=== PATIENT | male | born 1950 | race Caucasian/White ===

== ENCOUNTER 2017-01-29 07:08 | Day surgery (SDC) | payer MEDICARE ==
[~2017-01-29] VITALS: Ht 180.3 cm; Wt 117.5 kg
[~2017-01-29 07:08] MED LIST: LOSA25TA21 PO; METO-408 PO; SODIUM CHLORIDE 0.9% 1000ML 1,000 ML IV ONE
[2017-01-29 07:30] VITALS: BP 145/80
[2017-01-29] MEDS ORDERED: PROPOFOL 10 MG/ML 20ML VIAL IV ONE (08:50)
[2017-01-29 09:26] VITALS: BP 104/53
[2017-03-05] MEDS ORDERED: GINK120C PO (15:04)
[2017-03-05] MEDS ORDERED: FENO160T16 PO (15:04)
[2017-03-05] MEDS ORDERED: CHOL100018 PO (15:04)
[2017-03-05] MEDS ORDERED: SIMV20TA6 PO (15:04)
[2017-03-05] MEDS ORDERED: FISH OIL PO (15:04)
[2017-03-05] MEDS ORDERED: LOSA25TA2 PO (15:04)
[2017-03-05] MEDS ORDERED: AEC81 PO (15:04)
== END 2017-01-29 09:53 | disposition home or self-care (01) ==
LOC: DAH 07:08
PROVIDERS: ATTEND Internal Medicine Gastroenterology
DX: R19.4 Change in bowel habit (principal); E11.9 Type 2 diabetes mellitus without complications; I25.2 Old myocardial infarction; Z90.49 Acquired absence of other specified parts of digestive tract; E78.5 Hyperlipidemia, unspecified; Z87.891 Personal history of nicotine dependence; Z87.19 Personal history of other diseases of the digestive system; Z83.71 Family history of colonic polyps; Z80.9 Family history of malignant neoplasm, unspecified; Z83.3 Family history of diabetes mellitus; Z82.49 Family history of ischemic heart disease and other diseases of the circulatory system
CPT/HCPCS: 45378; A4606; J2704; J7030

== ENCOUNTER 2017-03-07 06:16 | Day surgery (SDC) | payer MEDICARE ==
[2017-03-05 14:16] LABS: BASOPHILS % (AUTO) 0.4 % (0.0-5.0); EOSINOPHILS % (AUTO) 2.4 % (0.0-8.0); HEMATOCRIT 40.6 % (42-54); LYMPHOCYTES % (AUTO) 42.2 % (21.0-51.0); MEAN CORPUSCULAR HEMOGLOBIN 30.2 pg (27.0-33.0); MEAN CORPUSCULAR HGB CONC 33.9 g/dL (32.0-36.0); MEAN CORPUSCULAR VOLUME 89.2 fL (79-99); PLATELET COUNT (AUTO) 194 K/uL (130-400); RED BLOOD CELL COUNT(AUTO) 4.55 MIL/uL (4.50-6.20); RED CELL DISTRIBUTION WIDTH 12.8 % (11.0-15.5); WHITE BLOOD COUNT (AUTO) 6.3 K/uL (4.8-10.8)
[2017-03-05 14:40] VITALS: BP 134/72
[2017-03-06] MEDS: CEFAZOLIN SODIUM 1 GM VIAL IVP SCH (11:00)
[2017-03-07] VITALS (18 sets, daily range): BP systolic 108–129; BP diastolic 55–63
[~2017-03-07] VITALS: Ht 182.9 cm; Wt 117.9 kg
[~2017-03-07 06:16] MED LIST changes: +AEC81 PO; +CHOL100018 PO; +FENO160T16 PO; +FISH OIL PO; +GINK120C PO; +LOSA25TA2 PO; -LOSA25TA21 PO; +SIMV20TA6 PO; -SODIUM CHLORIDE 0.9% 1000ML 1,000 ML IV ONE; +WATER FOR INJECTION,STERILE 20 ML VIAL IJ SCH
[2017-03-07] MEDS ORDERED: SODIUM CHLORIDE 0.9% 1000ML 1,000 ML IV ONE (06:43)
[2017-03-07] MEDS ORDERED: NEOMY SULF/POLYMYXIN B SULFATE 1 ML AMPUL IR ONE (07:09)
[2017-03-07] MEDS ORDERED: LIDOCAINE HCL-MPF 1% 5ML AMP IJ ONE (07:37)
[2017-03-07] MEDS ORDERED: GLYCOPYRROLATE 0.2 MG/ML 5 ML VIAL ONE (07:37)
[2017-03-07] MEDS ORDERED: LIDOCAINE PF 2% 5ML ABBOJECT ONE (07:37)
[2017-03-07] MEDS ORDERED: FENTANYL CITRATE PF 50 MCG/1 ML 5ML AMP IV ONE (07:37)
[2017-03-07] MEDS ORDERED: MIDAZOLAM HCL 1 MG/ML 2ML VIAL ONE (07:37)
[2017-03-07] MEDS ORDERED: DEXAMETHASONE SOD PHOSPHATE 10MG/ML 1ML VIAL ONE (07:37)
[2017-03-07] MEDS ORDERED: ROCURONIUM BROMIDE 10MG/1ML 5ML VL ONE (07:37)
[2017-03-07] MEDS ORDERED: ONDANSETRON HCL 4 MG/2 ML VIAL ONE (07:37)
[2017-03-07] MEDS ORDERED: PROPOFOL 10 MG/ML 20ML VIAL IV ONE ×2 (07:37→08:08)
[2017-03-07] MEDS: CEFAZOLIN SODIUM 1 GM VIAL IVP SCH (07:45)
[2017-03-07] MEDS ORDERED: EPHEDRINE SULFATE 50 MG/ML AMPULE ONE (07:52)
[2017-03-07] MEDS ORDERED: BUPIVACAINE/EPI/PF 0.5% 30ML VIAL IJ ONE (08:29)
[2017-03-07] MEDS ORDERED: MEPERIDINE-PF 25 MG/ML SYG ONE (09:22)
== END 2017-03-07 10:50 | disposition home or self-care (01) ==
LOC: DAH 06:16
PROVIDERS: ATTEND Surgery
DX: K42.0 Umbilical hernia with obstruction, without gangrene (principal); E11.9 Type 2 diabetes mellitus without complications; E78.00 Pure hypercholesterolemia, unspecified; I25.2 Old myocardial infarction; I10 Essential (primary) hypertension; Z98.890 Other specified postprocedural states; Z95.5 Presence of coronary angioplasty implant and graft; Z79.899 Other long term (current) drug therapy; Z87.891 Personal history of nicotine dependence
CPT/HCPCS: 36415; 49587; 80048; 82948; 85025; 93005; A4218; A4450; A4452; A4510; A4600; A4930; C1781; J0690; J1100; J2001; J2175; J2250; J2405; J2704 ×2; J3010; J3490 ×6; J7030

== ENCOUNTER → 2019-06-01 | Outpatient (CLI) | payer MEDICARE ==
[~2019-06-01] MED LIST changes: +SIMV-43 PO; -SIMV20TA6 PO; -WATER FOR INJECTION,STERILE 20 ML VIAL IJ SCH
== END | disposition home or self-care (01) ==
LOC: SHCH 13:15
PROVIDERS: ATTEND Internal Medicine Cardiovascular Disease
DX: I65.23 Occlusion and stenosis of bilateral carotid arteries (principal)
CPT/HCPCS: 93880

== ENCOUNTER → 2020-11-21 | Outpatient (CLI) | payer MEDICARE | END | disposition home or self-care (01) | LOC: SHCH 09:34 | PROVIDERS: ATTEND Internal Medicine Cardiovascular Disease | DX: I65.23 Occlusion and stenosis of bilateral carotid arteries (principal); I25.10 Atherosclerotic heart disease of native coronary artery without angina pectoris | CPT/HCPCS: 93925 ==

== ENCOUNTER 2025-01-20 05:45 | Day surgery (SDC) | payer MEDICARE ==
[2025-01-18 13:19] VITALS: BP 122/70; PULSE 56; RESP 18; TEMP 97.5
[2025-01-18 13:31] LABS: IMMATURE GRANULOCYTE ABSOLUTE 0.02 K/uL (0-1); NUCLEATED RED BLOOD CELLS 0.0 % (0.0-0.19); PLATELET COUNT (AUTO) 265 K/uL (130-400); RED BLOOD CELL COUNT(AUTO) 4.73 MIL/uL (4.50-6.20); RED CELL DISTRIBUTION WIDTH 12.2 % (11.0-15.5); WHITE BLOOD COUNT (AUTO) 7.4 K/uL (4.8-10.8)
[2025-01-18 13:34] LABS: APPEARANCE,URINE CLEAR (CLEAR); GLUCOSE, URINE (UA) NEGATIVE (NEGATIVE); LEUKOCYTE ESTERASE ,URINE NEGATIVE Leu/uL (NEGATIVE); NITRATE,URINE NEGATIVE (NEGATIVE); OCCULT BLOOD,URINE NEGATIVE (NEGATIVE)
[2025-01-18 13:35] LABS: ADD UA MICROSCOPIC NO
--- NOTE | 2025-01-18 13:35 | EKG ---
[facility] Test Date: 2025-01-18 Test Time: 13:12:57 Pat Name: BUFFY ZEPEDA Department: [facility] Room: Gender: M [place] [employer] [place] Manager: [id number] : 1950 Requested By: Cristy RIVERA Order Number: [id number] Reading MD: Gildardo Cool Measurements Intervals [place] Rate: 49 P: 0 IL: 0 QRS: 59 QRSD: 122 T: 54 QT: 462 QTc: 419 Interpretive Statements Atrial fibrillation Nonspecific intraventricular conduction delay Compared to ECG 04/16/2021 09:35:12 Intraventricular conduction delay now present Sinus bradycardia no longer present First degree AV block no longer present Electronically Signed On 01-18-2025 18:23:12 UPFITTER by Gildardo Cool Please click the below link to view image of tracing.
[2025-01-18 13:44] LABS: CREATININE 1.0 mg/dL (0.5-1.3); GLOMERULAR FILTR. RATE CALC 78.0 mL/min (>90); GLUCOSE,RANDOM 105.0 mg/dL (70-105); SODIUM SERUM 142.0 mmol/L (136-145); UREA NITROGEN, BLOOD 13.0 mg/dL (7-18)
[2025-01-18 13:55] LABS: INR 1.02 (0.85-1.15)
--- NOTE | 2025-01-18 19:20 | HMCIMG ---
STUDY: X-RAY OF THE CHEST, 1 VIEW HISTORY: Pre-operative evaluation. TECHNIQUE: A single frontal view of the chest is submitted for interpretation. COMPARISON: None provided. FINDINGS: Pulmonary corral: Mild prominence of bronchovascular markings. No focal consolidation, pulmonary edema, or discrete pulmonary nodule is identified. Cardiac silhouette: Cardiac silhouette is within normal limits in size and contour for a frontal projection. Mediastinum and amilcar: Mediastinal contours and hilar structures appear normal without evidence of mass or mediastinal widening. Small round mass in right hilum, recommend CT chest with IV contrast for further workup. Osseous structures: Visualized ribs, clavicles, and thoracic spine show no acute osseous abnormality. Miscellaneous: No pleural effusion or pneumothorax is identified. Costophrenic angles are clear. No subdiaphragmatic free air is seen. IMPRESSION: * Mild prominence of bronchovascular markings, which may reflect bronchitic or reactive airways changes in the appropriate clinical context. Small round mass in right hilum, recommend CT chest with IV contrast for further workup. * Otherwise no acute cardiopulmonary abnormality identified on this pre-operative single-view chest radiograph. /[place]
--- NOTE | 2025-01-19 11:49 | NUR ---
REPORT REPORTED BMP AND CXR TO MONIKA ALLEN NP. RECEIVED ORDERS FOR BMP IN AM
[~2025-01-20] VITALS: Ht 182.9 cm; Wt 111.7 kg
[2025-01-20] VITALS (11 sets, daily range): BP systolic 100–127; BP diastolic 51–71; PULSE 50–61; RESP 16–18; TEMP 96.9–97.6
[~2025-01-20 05:45] MED LIST changes: -AEC81 PO; +APIX5TAB PO; +ATOR10 PO; -CHOL100018 PO; +CLOP75TA32 PO; +DRON400T7 PO; -FENO160T16 PO; -FISH OIL PO; +FURO20TA4 PO; -GINK120C PO; +LEVO75CA6 PO; +LOSA100T59 PO; -LOSA25TA2 PO; -METO-408 PO; -SIMV-43 PO
[2025-01-20] MEDS: 0.9%NACL 1000ML 1,000 ML IV ONE (06:22)
[2025-01-20 06:37] LABS: CREATININE 1.0 mg/dL (0.5-1.3); GLOMERULAR FILTR. RATE CALC 78.0 mL/min (>90); GLUCOSE,RANDOM 142.0 mg/dL (70-105); SODIUM SERUM 140.0 mmol/L (136-145); UREA NITROGEN, BLOOD 18.0 mg/dL (7-18)
[2025-01-20] MEDS ORDERED: LIDOCAINE HCL 400MG/20ML VIAL ONE (07:16)
[2025-01-20] MEDS ORDERED: SODIUM BICARB 50MEQ 50ML VIAL 50 ML ONE (07:16)
[2025-01-20] MEDS ORDERED: HEParin-NS 1,000 UNIT/500 ML 1,000 ML IV ONE (07:17)
[2025-01-20] MEDS ORDERED: NITROGLYCERIN 50MG VIAL ONE (07:17)
[2025-01-20] MEDS ORDERED: IOHEXOL 350 MG/ML 100ML INFUS..BTL IV ONE ×2 (07:17→07:37)
[2025-01-20] MEDS ORDERED: MIDAZOLAM HCL 1 MG/ML 2ML VIAL ONE ×2 (07:30→08:16)
[2025-01-20] MEDS ORDERED: ATROPINE 1MG SYG IVP ONE (07:48)
[2025-01-20] MEDS ORDERED: DEXTROSE 50%-WATER 50 ML DISP.SYRIN IV PRN (09:00)
[2025-01-20] MEDS ORDERED: GLUCAGON 1MG KIT 1 MG ML IM PRN (09:00)
[2025-01-20] MEDS ORDERED: 0.9%NACL 1000ML 1,000 ML IV SCH (09:00)
--- NOTE | 2025-01-20 09:34 | CCATH ---
PROCEDURES: * Left heart catheterization. * Selective diagnostic right and left coronary arteriogram. * Selective right and left carotid artery angiogram. * Conscious sedation x 60 minutes. INDICATIONS: * Known history of severe coronary artery disease. * Status post remote angioplasty and stenting of the circumflex coronary artery in 2006. * Severe right carotid artery stenosis by noninvasive studies. * Recurrent TIAs. COMPLICATIONS: None. TOTAL CONTRAST: 85 mL. APPROACH: Right femoral approach. DESCRIPTION OF PROCEDURE: The patient was sent to the cardiac catheterization lab after appropriate operative consents were signed. It was prepped and draped in the usual fashion. After conscious sedation was administered, the right common femoral artery region was infiltrated with 2% Xylocaine without epinephrine. Ultrasound guidance was utilized to access the right common femoral artery. A 6-Kittitian sheath was advanced in a retrograde fashion with modified Seldinger technique. An FL4 6-Kittitian diagnostic catheter was advanced over an indwelling wire. This was selectively engaged in the ostium of the left main. Imaging was obtained in multiple planes. The left main was a smaller caliber vessel, calcified but non-stenotic with adequate antegrade flow. It bifurcated into the LAD, circumflex. The LAD was moderately sized vessel in its proximal portion and gave rise to a large branching first diagonal. The LAD had no significant stenotic lesion but was small to moderate at the distal terminal portion. Circumflex was a large vessel that gave rise to a tiny obtuse marginal 1 and an ongoing circ. There was a stent in the mid circ between the tiny obtuse marginal 1 and the larger second marginal branch, which was normal. There were no other significant stenotic lesions in the circumflex coronary artery. The catheter was withdrawn and an FR4 6-Kittitian catheter was advanced and placed in the left ventricular cavity. Left ventricular end-diastolic pressure measurement was obtained. Ventriculography was deferred. The patient has preserved left ventricular systolic function with noninvasive studies. The pullback revealed no evidence of aortic stenosis. The catheter was then engaged in the ostium of the right coronary artery. This was imaged in multiple planes. The right coronary artery was a large vessel, giving rise to an acute marginal PDA and a branching PLVB. There were no significant stenotic lesions; however, in the mid segment of the RCA, there appeared to be a filling defect that was seen on multiple views. This is of small magnitude and of questionable significance. It is certainly nonocclusive. At this point, the catheter was withdrawn and engaged in the right common carotid artery. This was imaged in multiple planes. This revealed a high-grade lesion in the distal common carotid artery involving the ostium of the right internal carotid artery. The lesion was calcified and appeared to be at least a 95% plus stenotic range. The distal intracerebral circulation was normal; however, there was evidence of hypoperfusion. The catheter was then withdrawn and engaged in the left common carotid artery. This was imaged in multiple planes. The common carotid artery was normal on the left. Bifurcated into external and internal. Both internal and external carotid arteries were normal. The intracerebral circulation was normal and the left giving rise to anterior and middle cerebral arteries. The patient had excellent flow from left to right via the left carotid system. The left middle and anterior cerebral arteries as well as the right middle and anterior cerebral arteries were filled by imaging of the left common carotid artery. At this point, the procedure was completed. Perclose was utilized with good hemostasis. The patient tolerated the procedure well and left the cardiac catheterization lab in stable condition. FINAL IMPRESSION: * Coronary artery disease with a patent circumflex stent and a minimal filling defect in the right coronary artery of questionable significance and no other significant stenotic lesions. * Preserved left ventricular systolic function on noninvasive studies. * No aortic stenosis on pullback. * Critical, calcified right internal carotid artery stenosis. PLAN: Continue medical management for the patient's cardiac status. We will discuss with the patient the options of management of his critical carotid stenosis either by open endarterectomy or TCAR. The heavily calcified nature of the lesion would favor carotid endarterectomy; however, this will be discussed with the patient and the family. TID: [id number] RECEIPT: [id number]
[2025-01-21] MEDS ORDERED: MAGN400T40 PO (14:25)
[2025-01-21] MEDS ORDERED: FISH1CAP63 PO (14:25)
[2025-01-21] MEDS ORDERED: CENTRUM MVI PO (14:25)
== END 2025-01-20 14:05 | disposition home or self-care (01) ==
LOC: DAH 05:45
PROVIDERS: ATTEND Internal Medicine Cardiovascular Disease
DX: I25.10 Atherosclerotic heart disease of native coronary artery without angina pectoris (principal); I65.23 Occlusion and stenosis of bilateral carotid arteries; I45.4 Nonspecific intraventricular block; I48.91 Unspecified atrial fibrillation; E78.5 Hyperlipidemia, unspecified; E03.9 Hypothyroidism, unspecified; E11.9 Type 2 diabetes mellitus without complications; I25.2 Old myocardial infarction; I87.2 Venous insufficiency (chronic) (peripheral); I48.0 Paroxysmal atrial fibrillation; I10 Essential (primary) hypertension; I77.9 Disorder of arteries and arterioles, unspecified; Z95.5 Presence of coronary angioplasty implant and graft; Z79.01 Long term (current) use of anticoagulants; Z79.899 Other long term (current) drug therapy
CPT/HCPCS: 80048 ×2; 83880; 85025; 85610; 85730; 81003; 36415 ×2; 71045; 93005; 36223; 93458; 99156; 99157 ×2; 82948; A4223 ×3; C1894 ×2; C1760; Q9965; J3010; J3490 ×3; J7030; J2250 ×2; J1644; Q9967; A4215; A4222; A4221; A4663; A4216; A4606; J0461

== ENCOUNTER 2025-01-21 16:00 | Inpatient (IN) | payer MEDICARE ==
[~2025-01-21] VITALS: Ht 182.9 cm; Wt 52.4 kg
[2025-01-21 13:00] VITALS: BP 128/57; PULSE 54; RESP 16; TEMP 97.4
--- NOTE | 2025-01-21 14:21 | HMCIMG ---
EXAM: CR Chest, 1 View. CLINICAL HISTORY: TCAR COMPARISON: None provided. FINDINGS: LUNGS: There is no mass, infiltrate, or acute pulmonary abnormality. PLEURAL SPACES: No evidence of pleural effusion or pneumothorax. MEDIASTINUM: Cardiac size and mediastinal contours within normal limits. BONES: No acute osseous abnormality. IMPRESSION: No acute cardiopulmonary pathology is evident. /[place]
--- NOTE | 2025-01-22 05:05 | EKG ---
[facility] Test Date: 2025-01-21 Test Time: 12:39:15 Pat Name: BUFFY ZEPEDA Department: Patient ID: [id number] Room: Gender: M Marketing Ambassador: [id number] : 1950 Requested By: Cristy RIVERA Order Number: [id number] Reading MD: Dane Verduzco Measurements Intervals [place] Rate: 57 P: 0 IA: 0 QRS: 32 QRSD: 136 T: 33 QT: 462 QTc: 449 Interpretive Statements Atrial fibrillation Nonspecific intraventricular conduction delay Compared to ECG 01/18/2025 13:12:57 No significant changes Electronically Signed On 01-24-2025 13:05:04 AMUSEMENT MACHINE MECHANIC by Dane Verduzco Please click the below link to view image of tracing.
[2025-01-25] VITALS (67 sets, daily range): BP systolic 82–200; BP diastolic 38–106; PULSE 41–85; RESP 10–61; TEMP 98.4–98.6; O2SAT 94–96
[2025-01-25] MEDS ORDERED: MIDAZOLAM HCL 1 MG/ML 2ML VIAL ONE (06:48)
[2025-01-25] MEDS ORDERED: NOREPINEPHRINE BITARTRATE 1 MG/1 ML ML IV ONE (07:11)
[2025-01-25] MEDS ORDERED: SODIUM BICARB 50MEQ 50ML VIAL 50 ML ONE (07:12)
[2025-01-25] MEDS ORDERED: LIDOCAINE HCL 400MG/20ML VIAL ONE (07:12)
[2025-01-25] MEDS ORDERED: HEParin-NS 1,000 UNIT/500 ML 1,000 ML IV ONE (07:12)
[2025-01-25] MEDS ORDERED: IODIXANOL 320 MG/ML 100 ML VIAL ONE (07:12)
[2025-01-25] MEDS ORDERED: NITROGLYCERIN 50MG VIAL ONE (07:14)
[2025-01-25] MEDS ORDERED: LIDOCAINE HCL 1% MDV 50ML VIAL ONE (07:22)
[2025-01-25] MEDS ORDERED: ATROPINE 1MG SYG IVP ONE (08:03)
--- NOTE | 2025-01-25 09:55 | NUR ---
RECEIVED FROM POT FISHER POST TCAR, PATIENT WAS SETTLED IN THE ROOM, APPEARED VERY DROWSY BUT WAS FOLLOWING COMMANDS, ABLE TO MOVE BOTH UPPER AND LOWER EXTREMETIES. HAS NEOSYNEPHRINE BUT THE HR IS IN THE 40-50'S. WILL CHANGE TO LEVOPHED. TEMPT WAS 94.1 DEGREES FARENHEIGHT, WARM BLANKETS SEVERAL LAYERS WERE APPLIED. WILL CONTINUE TO MONITOR.
--- NOTE | 2025-01-25 10:42 | CCATH ---
PROCEDURES: * Selective carotid artery angiography, right. * Right carotid artery balloon angioplasty. * Right carotid artery stent placement, TCAR approach. * Right common femoral vein access and 8-Stateless sheath placement by ultrasound guidance. INDICATIONS: * Critical right carotid artery stenosis. 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 COMPLICATIONS: None. TOTAL CONTRAST: Approximately 90 mL. OPERATORS: Alondra Marquez II, MD/Casey De Oliveira MD ANESTHESIA: General anesthesia with endotracheal intubation. ESTIMATED BLOOD LOSS: Less than 25 mL. DESCRIPTION OF PROCEDURE: The patient was taken to the Cardiac Salon Sales Consultant after appropriate operative consents were signed. He was prepped and draped in the usual fashion. After anesthesia was induced, the right common carotid artery was exposed at the base of the neck by Dr. Casey De Oliveira, who will be dictating his notes separately. At this point, the right common femoral vein was accessed utilizing ultrasound guidance. An 8-Stateless sheath was advanced in a retrograde fashion with modified Seldinger technique. The right carotid artery was then accessed by Dr. Marquez and angiography was performed, multiple positions identifying a high-grade, heavily calcified 95% eccentric right internal carotid artery and distal common carotid artery lesion. At this point, the TCAR sheath was then advanced under fluoroscopic guidance. Flow reversal was started and the carotid artery was occluded by an indwelling umbilical tape system. After flow reversal and full heparinization, a 0.014 wire was advanced under fluoroscopic guidance and placed in the distal right internal carotid artery circulation. Because of the critical nature of the lesion, we elected to predilate with a 5 NC balloon. This was performed multiple times. We then advanced a 7 x 30 self-expanding TCAR stent, which was deployed in the area of stenosis in the right internal carotid artery traversing the external carotid artery and positioned in the distal right common carotid artery. This was post dilated with a 5.5 mm balloon to 16 atmospheres at 5.95 mm size. Final angiographic results were adequate with good brisk flow antegrade. The flow reversal was stopped after the cross clamp had been removed. The femoral sheath was then removed utilizing a Vascade device. The right carotid endarterectomy repair was performed by Dr. De Oliveira. The patient tolerated the procedure well and left the Cardiac Salon Sales Consultant in stable condition. FINAL IMPRESSION: Successful right carotid TCAR for symptomatic critical disease. PLAN: Medical management. TID: [id number] RECEIPT: [id number]
[2025-01-25] MEDS: NOREPINEPHRIN 4MG/NS 250ML 250 ML IV SCH (10:53)
[2025-01-25] MEDS: ASPIRIN 81MG CHEW TAB PO ONE (11:12)
[2025-01-25] MEDS: 0.9%NACL 1000ML 1,000 ML IV SCH (11:15)
--- NOTE | 2025-01-25 12:58 | HP ---
[facility] HISTORY & PHYSICAL Date Patient Seen: Jan 25, 2025 Time of Visit: 12:58 Supervising Physician: Dr. Bob Primary Care Physician: Dr. Pilar Moore/Jaxon Outpatient Specialists: [ ] Inpatient Consults: Dr. Marquez (Cardiology) PROBLEM LIST Severe Right ICA stenosis s/p TCAR with balloon angioplasty and stent placement Atrial fibrillation, on Eliquis 2.5 b.i.d. History of AL in 2006 History of DVT in 1999 Diabetes mellitus diet controlled HPI: Patient is a 74-year-old male with a past medical history significant for atrial fibrillation, history of AL, who presents today for TCAR balloon angioplasty and stent placement secondary to severe right side ICA stenosis. Patient's procedure was uneventful and he is evaluated today currently on 2 L nasal cannula, currently on IV fluids at 100 mL/hour. Patient's vitals are normal at this time. Nursing staff advised as patient was slightly hypotensive with the head of the bed was raised, low-dose Levophed was initiated, we will initiate 500 mL fluid bolus to attempt to discontinue pressors. Patient currently has CBC and BNP was scheduled for tomorrow morning. He is in no acute distress at this time, he remains NPO. Plan Currently on low-dose Levophed Initiate 500 mL fluid bolus and attempt to wean pressors Continue supplemental O2 to maintain adequate saturations Follow Cardiology recommendations Tentative discharge planned in the next 24 hours if no overnight events reported. PAST MEDICAL HX: see above PAST SURGICAL HX: noncontributory SOCIAL HISTORY: No tobacco, ETOH, or illicit drug use Coded Allergies: No Known Drug Allergies (Unverified Allergy, Unknown, 01/28/17) REVIEW OF SYSTEMS: 12 point ROS reviewed with patient. Pertinent positives mentioned above. Otherwise negative. PHYSICAL EXAM: GENERAL: alert, weak, awake oriented x 3 HEENT: EOMI, Sclera non icteric, moist mucosa NECK: Supple, no JVD, trachea midline LUNGS: Clear breath sounds bilaterally. No wheezes HEART: Regular rate and rhythm. Normal S1 and S2, without murmurs ABD: Abdomen soft, nontender. Bowel sounds present EXT: No clubbing cyanosis or edema NEURO: Alert and oriented to person, follows commands Vital Signs (last 8hr) Date Time Temp Pulse Resp B/P (MAP) Pulse Ox O2 Delivery O2 Flow Rate FiO2 12/9/25 10:53 96/49 01/25/25 06:00 98.6 85 16 140/86 97 Room Air 21 LABS: DIAGNOSTICS / RADIOLOGY RESULTS: [ ] PLAN NEURO: Minimize central acting medications as possible. Fall Precautions. Well lighted room through the day and minimize interruptions through the night to prevent acute delirium. PULMONARY: Supplemental 02 as needed Titrate Fio2 to keep Spo2 > or = 90% DuoNebs and CPT as needed IS hourly while awake for pulmonary hygiene Out of bed to chair as tolerated VAP Bundle Vent/BIPAP Settings: [ ] Driving pressure: [ ] P Plat: [ ] Static C: [ ] Static R: [ ] P/F Ratio: [ ] CARDIOVASCULAR: Follow hemodynamics. Titrate vasopressor to keep MAP >65 or systolic blood pressure >95mmHg DIPS: [ ] LINES: [ ] GI & NUTRITION: Continue nutritional support Aspirations precautions Prokinetic agents and laxatives as needed KIDNEYS & ELECTROLYTES: Strict monitoring of intake and output Daily weights Avoid nephrotoxic agents Monitor electrolytes and replace as needed Goal urine output of 30mL/hr or 0.5mL/kg/hr Urine output: [ ] Fluid Balance: [ ] ENDOCRINE: Maintain blood glucose between 100-180 at all times. Insulin sliding scale for blood glucose management INFECTIOUS DISEASE: Trend temperature. Estes-culture if febrile. Micro: [ ] Antibiotics: [ ] HEMATOLOGY & COAGULATION: Monitor H&H. Keep Hgb > 7 Transfuse 1 unit of PRBC for Hgb < 7 Transfuse 1 pack of platelets of platelets < 20, 000 Watch for any signs and symptoms of bleeding SKIN: Pressure ulcer prevention per facility protocol Rehab: PT/OT Prophylaxis: GI: [ ] DVT: [ ] Code Status: Full Resuscitation Disposition: [ ] Other: Total patient care time exceeds 35 minutes excluding all procedures. Case was discussed and seen with my supervising physician. The above plan was formulated and agreed upon. CARTER NELSON PAC Jan 25, 2025 12:58
[2025-01-25] MEDS ORDERED: 0.9%NACL 1000ML 500 ML IV SCH (13:30)
--- NOTE | 2025-01-25 15:00 | NUR ---
DCP: HOME Pt lives with [facility] [phone] in [place] in a mobile home with steps to enter home. Pt voiced he is independent of self care and uses no DME or HH services. PCP is Teresa Coates and uses [facility] in [place] for rx. Pt denies dc needs. Pt to return home at dc
[2025-01-25] MEDS: SUGAMMADEX SODIUM 200 MG/2 ML VIAL IV ONE (16:52)
--- NOTE | 2025-01-25 17:00 | NUR ---
PATIENT WAS ENDORSED TO [facility].
[2025-01-26] VITALS (32 sets, daily range): BP systolic 92–140; BP diastolic 40–74; PULSE 41–88; RESP 12–19; TEMP 98.6–98.7; O2SAT 95–97
--- NOTE | 2025-01-26 02:42 | OP ---
DATE OF PROCEDURE: 01/25/2025 PREOPERATIVE DIAGNOSIS: Right internal carotid artery stenosis with symptoms of amaurosis fugax. POSTOPERATIVE DIAGNOSIS: Right internal carotid artery stenosis with symptoms of amaurosis fugax. PROCEDURES PERFORMED: * TCAR procedure performed by Dr. Rivera of Cardiology. * Exposure and repair of right common carotid artery by Dr. De Oliveira of Cardiovascular Surgery. LIFT DRIVER: Danika Liang. TYPE OF ANESTHESIA: General endotracheal anesthesia delivered by CONSTRUCTION CREW MEMBER. BRIEF HISTORY: The patient is a 74-year-old male who is having visual problems in his right eye. Workup revealed critical right internal carotid artery stenosis as the cause for his amaurosis fugax. He presents now for a TCAR procedure. FINDINGS: The patient had a relatively small right common carotid artery. After a successful TCAR procedure, I stented the right internal carotid artery. The right common carotid artery was repaired after removing the sheath with good hemostasis. DESCRIPTION OF PROCEDURE: The patient was brought to the operating room and placed on the operating table in supine position. He was given general endotracheal anesthesia. His right neck was then prepped and draped in the usual sterile fashion. A transverse incision was made above the right clavicular head and the right common carotid artery was dissected out and surrounded with an umbilical tape that was snared. A 5-0 Prolene pursestring was placed in the anterior wall of the right common carotid artery and the patient was given [address] Rivera then took over at that point of the procedure and performed a successful stenting of the right internal carotid artery. I returned to the surgical field. The umbilical snare was tightened around the common carotid artery. The sheath was removed from the right common carotid artery and the 5-0 Prolene pursestring was tied. The snare was released and removed. There were good pulsations in the artery and the hemostasis was good. The wound was then closed with three layers of running Vicryl suture. The skin was closed using a running intracuticular Monocryl stitch. The wounds were cleaned and dried, covered with bandages. The patient was undraped, extubated, and taken to the ICU in critical but stable condition. TID: [id number] RECEIPT: [id number] cc: NARAYAN AUGUSTE MD(User), Alondra RIVERA II MD(User), Danika Liang
[2025-01-26 04:40] LABS: NUCLEATED RED BLOOD CELLS 0.0 % (0.0-0.19); PLATELET COUNT (AUTO) 134.0 K/uL (130-400); RED BLOOD CELL COUNT(AUTO) 3.72 MIL/uL (4.50-6.20); RED CELL DISTRIBUTION WIDTH 12.4 % (11.0-15.5); WHITE BLOOD COUNT (AUTO) 7.0 K/uL (4.8-10.8)
[2025-01-26 04:56] LABS: CREATININE 0.8 mg/dL (0.5-1.3); GLOMERULAR FILTR. RATE CALC 92.0 mL/min (>90); GLUCOSE,RANDOM 118.0 mg/dL (70-105); SODIUM SERUM 140.0 mmol/L (136-145); UREA NITROGEN, BLOOD 9.0 mg/dL (7-18)
--- NOTE | 2025-01-26 07:34 | PN ---
PROBLEM LIST: * Critical right carotid artery stenosis. * Recurrent right hemispheric ophthalmic TIAs. * Diabetes mellitus, type 2. * Hyperlipoproteinemia. * Nonobstructive coronary artery disease by recent cardiac catheterization. * Persistent atrial fibrillation, currently on full anticoagulation. * Hypothyroidism, on supplement. * Day #1 status post right carotid TCAR with placement of 7 x 30 En[employer] stent post-dilated with a 5.5 mm balloon with good final angiographic results. SUBJECTIVE: This gentleman has been stable overnight without any active cardiac or vascular complaints. His vital signs have been stable. He is off of all drips. He has minor incisional discomfort in the right neck base. The patient has had no neurologic deficit. He has adequate healing of the right femoral vein access site. The patient's laboratory parameters have been stable this morning. The vital signs have also been stable. This gentleman is currently maintained on his home medications, which include Eliquis and clopidogrel. Eliquis will be started today and he has been on clopidogrel all along. He was loaded with aspirin during the procedure but will not be continued on aspirin because of concomitant use of Eliquis and clopidogrel. The patient is also maintained on Multaq, levothyroxine, and low-dose furosemide. He has been on losartan and atorvastatin. PLAN: At this point, the patient will be maintained on the current regimen and will be seen at the [facility] once dismissed. He will be scheduled to see Dr. Dane Wallace and Dr. Nunez. TID: [id number] RECEIPT: [id number]
--- NOTE | 2025-01-26 08:34 | NUR ---
0702 DR RIVERA AT BEDSIDE, REPORT PROVIDED TO , NO ORDERS RECEIVED BUT COMMUNICATED HE IS OKAY WITH PATIENT DC PENDING PRIMARY'S INSTRUCTION.
--- NOTE | 2025-01-26 09:46 | DS ---
[facility] DISCHARGE SUMMARY Date Patient Seen: Jan 26, 2025 Time of Visit: 09:46 Supervising Physician: Dr. Bob Primary Care Physician: Dr. Pilar Moore/Jaxon Outpatient Specialists: [ ] Inpatient Consults: Dr. Marquez (Cardiology) HOSPITAL COURSE: HPI (per admitting provider) Patient is a 74-year-old male with a past medical history significant for atrial fibrillation, history of [place], who presents today for TCAR balloon angioplasty and stent placement secondary to severe right side ICA stenosis. Patient's procedure was uneventful and he is evaluated today currently on 2 L nasal cannula, currently on IV fluids at 100 mL/hour. Patient's vitals are normal at this time. Nursing staff advised as patient was slightly hypotensive with the head of the bed was raised, low-dose Levophed was initiated, we will initiate 500 mL fluid bolus to attempt to discontinue pressors. Patient currently has CBC and BNP was scheduled for tomorrow morning. He is in no acute distress at this time, he remains NPO. The patient was treated for the following problems: Patient was admitted for a planned TCAR procedure of the right internal carotid artery secondary to severe stenosis with symptoms of amaurosis fugax. Patient tolerated the procedure well, remained in the ICU overnight, incision on the right side of the base of his neck is clean, no bleeding erythema or edema. Patient remains on on Plavix, Eliquis was re-initiated today by Cardiology. He has been cleared by Cardiology to discharge and follow up as outpatient. Patient's labs this morning are unremarkable, hemoglobin stable at 11.1. He is on room air and ambulating independently, has passed a bowel movement, in his being discharged in no acute distress with understanding and recommendations to follow up with Cardiology as outpatient. ACTIVE PROBLEM LIST FOR THE HOSPITALIZATION: Severe Right ICA stenosis s/p TCAR with balloon angioplasty and stent placement CHRONIC PROBLEMS: continue previous management per PCP unless otherwise indicated Atrial fibrillation, on Eliquis 2.5 b.i.d. History of UT in 2006 History of DVT in 1999 Diabetes mellitus diet controlled INSOLE TACK PULLER HAND FINDINGS/RECOMMENDATIONS: [ ] PROCEDURES: as mentioned above DISCHARGE MEDICATIONS: Patient advised to continue his Plavix and Eliquis as outpatient Pt hemodynamically stable and afebrile at time of discharge. PCP notified of patients admission, hospital course and discharge. PHYSICAL EXAM: GENERAL: alert, weak, awake oriented x 3 HEENT: EOMI, Sclera non icteric, moist mucosa NECK: Supple, no JVD, trachea midline LUNGS: Clear breath sounds bilaterally. No wheezes HEART: Regular rate and rhythm. Normal S1 and S2, without murmurs ABD: Abdomen soft, nontender. Bowel sounds present EXT: No clubbing cyanosis or edema NEURO: Alert and oriented to person, follows commands FOLLOW-UP: Follow-up with PCP in 2-3 days Follow up with Cardiology this week RECOMMENDATIONS: See Discharge Instructions This case was seen and discussed with my supervising physician. More than 30 minutes spent on discharge process, including evaluation of the patient, discussion with nursing staff, medication reconciliation and follow-up appointments CARTER NELSON PAC Jan 26, 2025 09:46
--- NOTE | 2025-01-26 23:13 | PN ---
SUBJECTIVE: The patient is postop day #1 from a TCAR procedure. The patient is doing well. He is neurologically intact. He is off of all pressors. OBJECTIVE: VITAL SIGNS: Reveal a pulse of 54, blood pressure 128/51, respirations 17, oxygen saturation 94%. HEENT: Normocephalic. He has a bandage over his right supraclavicular incision. This was removed. There is minimal bruising and no swelling. The wound is intact. He has a glue bandage over this. NEUROLOGICAL: He is awake, alert, and oriented x3. He is conversant. He moves all 4 extremities. He wears bifocals. HEART: His heart is bradycardic but regular. LUNGS: Unlabored at rest, lying flat in bed. ABDOMEN: Soft and nontender. ASSESSMENT AND PLAN: Status post transcarotid artery revascularization procedure. From a cardiovascular surgery standpoint, the patient's bandage can be left off his neck. Wound care was discussed with the patient and if okay with Cardiology, the patient can be discharged home on antiplatelet therapy and statin therapy. Time spent 30 minutes. Patient is in the ICU. TID: [id number] RECEIPT: [id number]
== END 2025-01-26 11:18 | disposition home or self-care (01) | DRG 35 ==
LOC: DAHIP 01-25 05:55 → 2CV 01-25 10:39 → EDSTATUS 01-25 16:00
PROVIDERS: ADMIT Internal Medicine Cardiovascular Disease; ATTEND Internal Medicine Cardiovascular Disease
PROC: 037K3DZ Dilation of Right Internal Carotid Artery with Intraluminal Device, Percutaneous Approach (ICD-10-PCS; principal; 2025-01-25 12:30)
PROC: B3161ZZ Fluoroscopy of Right Internal Carotid Artery using Low Osmolar Contrast (ICD-10-PCS; 2025-01-25 12:30)
DX: I65.21 Occlusion and stenosis of right carotid artery (principal); I48.19 Other persistent atrial fibrillation; E03.9 Hypothyroidism, unspecified; Z79.01 Long term (current) use of anticoagulants; E11.9 Type 2 diabetes mellitus without complications; I25.10 Atherosclerotic heart disease of native coronary artery without angina pectoris; E78.5 Hyperlipidemia, unspecified; I25.2 Old myocardial infarction; Z86.718 Personal history of other venous thrombosis and embolism; Z79.899 Other long term (current) drug therapy
CPT/HCPCS: 36224; 36415; 37215; 71045; 80048; 85027; 86850; 86900; 86901; 86923; 93005; A4606; C1769; G0378; J0169; J0461; J0690; J1644; J2250; J2371; J2704; J3010; J3490; J7030; Q9967; A4215; A4216; A4221; A4222; A4223; A4351; A4649; A4663; C-1725; C1725; C1760; C1876; C1884; C1894; J0665